=== PATIENT | female | born 1980 | race Caucasian/White ===

== ENCOUNTER 2018-04-20 21:06 | Emergency (ER) | payer OTHER ==
[2018-04-20 21:27] VITALS: BP 157/95; PULSE 86; TEMP 98.6; BMI 27.8
[2018-04-20] MEDS ORDERED: LIDOCAINE 5% TOPICAL PATCH TP ONE (21:27)
[2018-04-20] MEDS ORDERED: ACETAMINOPHEN 325 MG TABLET (FP) PO ONE (21:27)
[2018-04-20] MEDS ORDERED: LIDOCAINE 5% TOPICAL PATCH ONE (21:40)
[2018-04-20] MEDS ORDERED: ACETAMINOPHEN 325 MG TABLET (FP) ONE (21:40)
[2018-04-20] MEDS ORDERED: CYCLOBENZAPRINE HCL 5 MG TABLET PO ONE (21:46)
[2018-04-20] MEDS ORDERED: CYCLOBENZAPRINE HCL 10 MG TABLET (FP) ONE (21:52)
[2018-04-20] MEDS ORDERED: LIDOCAINE PATCH REMOVAL MC SCH (22:00)
--- NOTE | 2018-04-20 23:30 | PDOC ---
History of Present Illness - General Chief Complaint: Pain Stated Complaint: RT POST LOWER RIB PAIN Time Seen by Provider: 04/20/18 21:11 History Source: Patient Exam Limitations: No Limitations - History of Present Illness Initial Comments: 04/20/18 23:27\ VALENTINO 37 YOF with no pmh, presents to the emergency department complaining of 3 days of right sided back pain. Patient reports progressively worsening localized right thoracic back pain that began intermittently and is now constant , 12/12. Exacerbated with touching the area, leaning over, and coughing. Denies trauma or falls. However, does work and performs heavy lifting. +Intermittent coughing for several weeks, with URI back in March 2018. Took ibuprofen with no relief. Denies n/v/d, fever/chills, paresthesia or weakness, or change in urinary output. Denies EtOH, drug, or tobacco use. Social hx: works with babies/toddlers Past History - Past Medical History Allergies/Adverse Reactions: Allergies Allergy/AdvReac Type Severity Reaction Status Date / Time No Known Allergies Allergy Unverified 04/20/18 21:08 Home Medications: Ambulatory Orders Cyclobenzaprine HCl [Flexeril 10 mg] 10 mg PO TID PRN #15 tablet 04/20/18 Ibuprofen [Motrin -] 600 mg PO TID #21 tablet 04/20/18 Lidocaine 5% Patch [Lidoderm Patch -] 1 patch TP DAILY #7 patch 04/20/18 COPD: No - Suicide/Smoking/Psychosocial Hx Smoking History: Never smoked Review of Systems - Review of Systems Able to Perform ROS?: Yes Comments:: 04/20/18 23:31 Constitutional: no fevers or chills. HEENT: no headache or dizziness. No congestion. No visual/hearing disturbances. CVS: no cp or syncope. Resp:+Intermittent coughing. no sob, no cough. Abdomen: no abdominal pain, nausea or vomiting. Genitourinary: no urinary sx, hematuria. MUSCULOSKELETAL: +Back pain. No joint pain and swelling. No neck pain. SKIN: no redness or skin changes, no discharge, no rash. No wounds. Hematologic: no easy bruising/bleeding. NEUROLOGIC: No headache, dizziness, LOC or altered mental status. No weakness, numbness or tingling. All other systems reviewed and negative, or as documented in HPI. *Physical Exam - Vital Signs Last Vital Signs Temp Pulse Resp BP Pulse Ox 98.6 F 86 16 157/95 100 04/20/18 21:18 04/20/18 21:18 04/20/18 21:18 04/20/18 21:18 04/20/18 21:18 - Physical Exam Comments: 04/20/18 23:32 General: Well appearing, awake and alert, NAD. HEENT: NCAT, PERRL, EOMI, clear conjunctiva, anicteric, moist mucus membranes, clear oropharynx, no oral lesions.. Neck: neck supple, FROM Resp: CTAB, normal and even respirations, no respiratory distress CVS: RRR, no murmurs, 2+ peripheral pulses throughout, no peripheral edema Abdomen: soft, NTND, no peritoneal signs. Back: +right mid thoracic palp TTP, no crepitus. normal inspection and ROM MSK: no edema, CRISTINA x4, ROM intact. No clubbing or cyanosis. normal bulk and tone. Extrem: no calf tenderness Neuro: alert, oriented appropriately; no focal neurologic deficits Skin: warm and well perfused, cap refill <2 sec, normal color ED Treatment Course - ADDITIONAL ORDERS Additional order review: Laboratory Results 04/20/18 22:20 Urine HCG, Qual Negative - RADIOLOGY Radiology Studies Ordered: Category Date Time Status CHEST PA & LAT [RAD] Stat Radiology 04/20/18 22:02 Taken - Medications Given in the ED: ED Medications Discontinued Medications Generic Name Dose Route Start Last Admin Trade Name Freq PRN Reason Stop Dose Admin Acetaminophen 650 mg 04/20/18 21:27 04/20/18 21:43 Tylenol - PO 04/20/18 21:28 650 mg ONCE ONE Administration Cyclobenzaprine HCl 10 mg 04/20/18 21:46 04/20/18 21:54 Cyclobenzaprine Hcl PO 04/20/18 21:47 10 mg ONCE ONE Administration Lidocaine 1 patch 04/20/18 21:27 04/20/18 21:43 Lidoderm Patch - TP 04/20/18 21:28 1 patch ONCE ONE Administration Medical Decision Making - Medical Decision Making 04/20/18 23:32 Valentino 37 YOF with right upper paravertebral back pain, worse with movement. + exertional activity, no trauma or falls VS wnl no midline sx. no neuro changes. given analgesia, flexeril muscle relaxant, topical lidoderm ROM intact. analgesia achieved most likely msk strain. CXR clear, normal respirations, no e/o pneumonia, ptx. avoid heavy lifting and exertion supportive care, rx same meds to pharmacy. pcp followup. DC in stable condition 04/20/18 23:34 *DC/Admit/Observation/Transfer Diagnosis at time of Disposition: Upper back strain - Discharge Dispostion Disposition: HOME Condition at time of disposition: Stable Decision to Admit order: No - Prescriptions Prescriptions: Cyclobenzaprine HCl [Flexeril 10 mg] 10 mg PO TID PRN #15 tablet PRN Reason: Muscle Spasms Ibuprofen [Motrin -] 600 mg PO TID #21 tablet Lidocaine 5% Patch [Lidoderm Patch -] 1 patch TP DAILY #7 patch - Referrals Referrals: Maxx Metcalf [Primary Care Provider] - - Patient Instructions Printed Discharge Instructions: DI for Thoracic Back Pain Additional Instructions: your X ray was negative for infection stay well hydrated may use flexeril (muscle relaxant), three times a day as needed for spasms. this can cause sleepiness and dizziness, do not work or drive or operate machinery under this medication motrin every 8 hours as needed for pain, tylenol as well lidoderm patch topically avoid heavy lifting and strenuous activity, light activity as tolerated. follow up with primary doctor - Post Discharge Activity
== END 2018-04-20 23:42 | disposition home or self-care (01) ==
LOC: FER 21:06
DX: S29.012A Strain of muscle and tendon of back wall of thorax, initial encounter (principal); X58.XXXA Exposure to other specified factors, initial encounter; Y93.9 Activity, unspecified; Y92.9 Unspecified place or not applicable
CPT/HCPCS: 71046-TC-FY; 84703; 99282-25

== ENCOUNTER 2024-07-25 10:10 | Inpatient (IN) | payer OTHER ==
[2024-07-25] MEDS ORDERED: FAMOTIDINE 20 MG/50 ML IVPB 20 MG/50 ML MG IVPB ONE (10:51)
[2024-07-25] MEDS ORDERED: MECLIZINE HCL 25 MG TABLET (FP) ONE (10:51)
[2024-07-25] MEDS ORDERED: ONDANSETRON 4 MG/2 ML VIAL ONE (10:51)
[2024-07-25] MEDS: ONDANSETRON 4 MG/2 ML VIAL IVPUSH ONE (10:55)
[2024-07-25] MEDS: MECLIZINE HCL 25 MG TABLET (FP) PO ONE (11:00)
[2024-07-25] MEDS: FAMOTIDINE 20 MG/50 ML IVPB 20 MG/50 ML MG IVPB ONE (11:02)
[2024-07-25 11:10] LABS: INR 1.07 (0.83-1.09); PROTHROMBIN TIME (PATIENT) 12.2 SEC (9.7-13.0)
[2024-07-25 11:12] LABS: ACTIVATED PTT 35.6 SECONDS (25.2-36.5)
[2024-07-25 11:14] LABS: HEMATOCRIT 51.4 % (32.4-45.2); HEMOGLOBIN 17.5 G/dL (10.7-15.3); MCH 34.6 pg (25.7-33.7); MEAN CELL VOLUME 101.8 fl (80-96); MEAN PLT VOLUME 10.2 fl (7.5-11.1); PLATELET COUNT 256.4 10^3/uL (134-434); RBC 5.05 10^6/uL (3.60-5.2); RDW 12.8 % (11.6-15.6); WHITE BLOOD COUNT 12.5 10^3/uL (4.0-10.8)
[2024-07-25] MEDS ORDERED: ACETAMINOPHEN 325 MG TABLET (FP) ONE (11:17)
[2024-07-25] MEDS: ACETAMINOPHEN 325 MG TABLET (FP) PO ONE (11:19)
[2024-07-25 11:21] LABS: ALBUMIN 5.1 g/dl (3.4-5.0); ALK PHOS 150 U/L (45-117); ANION GAP 27 mmol/L (4-13); BILIRUBIN,TOTAL 0.5 mg/dl (0.2-1); CALCIUM 10.3 mg/dl (8.5-10.1); CHLORIDE 101 mmol/L (98-107); CO2 5 mmol/L (21-32); CREATININE 1.3 mg/dl (0.6-1.3); POTASSIUM 5.1 mmol/L (3.5-5.1); SGOT/AST 13 U/L (15-37); SGPT/ALT 24 U/L (7-52); SODIUM 133 mmol/L (136-145); TOT PROT 8.6 g/dl (6.4-8.2)
[2024-07-25 11:26] LABS: GLUCOSE,RANDOM 577 mg/dl (74-106)
[2024-07-25 11:55] LABS: EPITHELIAL CELLS 0-5 /hpf
[2024-07-25 11:55] LABS: N-TERMINAL BNP 92.1 pg/ml (5-125)
[2024-07-25 11:56] LABS: PLATELET ESTIMATE ADEQUATE
[2024-07-25] MEDS ORDERED: MUPIROCIN 2% TOPICAL OINTMENT FOR DECOLONIZATION NS SCH (12:00)
[2024-07-25] MEDS: INSULIN REGULAR 100 UNITS in SODIUM CHLORIDE 99 ML IVPB SCH ×2 (12:08→21:25)
[2024-07-25] MEDS: SODIUM CHLORIDE 1,000 ML IV STA ×2 (12:35→14:19)
[2024-07-25 12:41] LABS: HIV INTERPRETATION NEGATIVE (NEGATIVE)
[2024-07-25 13:18] LABS: VENOUS BASE EXCESS -24.9 mmol/L (-2-2); VENOUS O2 SATURATION 70.6 % (70-80); VENOUS PCO2 22.2 mmHg (38-52)
[2024-07-25 13:22] LABS: VENOUS PH 6.989 (7.310-7.410)
[2024-07-25] MEDS: LACTATED RINGERS SOLUTION 1,000 ML/1,000 ML INFUS.BAG IV SCH ×2 (15:55→21:24)
[2024-07-25] MEDS: MUPIROCIN 2% TOPICAL OINTMENT FOR DECOLONIZATION NS SCH (15:55)
[2024-07-25 18:35] LABS: POTASSIUM 4.6 mmol/L (3.5-5.1)
[2024-07-25 18:37] LABS: CALCIUM 8.4 mg/dL (8.5-10.1)
[2024-07-25 18:38] LABS: BLOOD UREA NITROGEN 19.1 mg/dL (7-18)
[2024-07-25 18:41] LABS: CREATININE 0.9 mg/dL (0.55-1.3); PHOSPHOROUS 2.1 mg/dL (2.5-4.9)
[2024-07-25] MEDS: POTASSIUM PHOSPHATE 15 MM in SODIUM CHLORIDE 250 ML IVPB ONE (21:24)
[2024-07-25] MEDS: DEXTROSE 5%-WATER - 1,000 ML IV SCH (21:25)
[2024-07-25] MEDS: CHLORHEXIDINE GLUCONATE 4% CLEANSER FOR DECOLONIZATION TP SCH (21:27)
[2024-07-25] MEDS ORDERED: CHLORHEXIDINE GLUCONATE 4% CLEANSER FOR DECOLONIZATION TP SCH (22:00)
[2024-07-26 06:11] LABS: ARTERIAL BLD GAS O2 SATURATION 97.6 % (95-98); ARTERIAL BLOOD GAS BASE EXCESS -10.9 mmol/L (-2-2); ARTERIAL BLOOD GAS PO2 100.6 mmHg (80-100); ARTERIAL BLOOD GAS pH 7.369 (7.350-7.450)
[2024-07-26 06:18] LABS: ALLENS TEST POSITIVE
[2024-07-26] MEDS: INSULIN (LEVEMIR) 100 UNITS/ML UNITS SQ ONE (06:52)
[2024-07-26 06:54] LABS: BASO % 0.6 % (0-2.0); EOS % 0.2 % (0-4.5); HEMATOCRIT 41.5 % (32.4-45.2); HEMOGLOBIN 13.9 GM/dL (10.7-15.3); LYMPH % 12.9 % (8-40); MCH 33.3 pg (25.7-33.7); MCHC 33.4 g/dl (32.0-36.0); MEAN CELL VOLUME 99.6 fl (80-96); MEAN PLT VOLUME 9.1 fl (7.5-11.1); MONO % 6.9 % (3.8-10.2); NEUT % 79.4 % (42.8-82.8); PLATELET COUNT 193 10^3/uL (134-434); RBC 4.17 M/mm3 (3.60-5.2); RDW 13.7 % (11.6-15.6); WHITE BLOOD COUNT 13.5 K/mm3 (4.0-10.0)
[2024-07-26] MEDS: INSULIN ASPART SLIDING SCALE (NOVOLOG) 1 VIAL SQ SCH ×2 (06:55→21:53)
[2024-07-26 07:16] LABS: POTASSIUM 3.3 mmol/L (3.5-5.1)
[2024-07-26 07:20] LABS: BLOOD UREA NITROGEN 13.5 mg/dL (7-18)
[2024-07-26 07:21] LABS: CALCIUM 8.8 mg/dL (8.5-10.1)
[2024-07-26 07:22] LABS: MAGNESIUM 1.9 mg/dL (1.8-2.4)
[2024-07-26 07:23] LABS: CREATININE 0.8 mg/dL (0.55-1.3)
[2024-07-26 07:24] LABS: PHOSPHOROUS 1.4 mg/dL (2.5-4.9)
[2024-07-26] MEDS: ENOXAPARIN NA (PORCINE) 40 MG/0.4 ML DISP.SYRIN SQ SCH (09:16)
[2024-07-26] MEDS: POTASSIUM PHOSPHATE 15 MM in DEXTROSE 5%-WATER - 100 ML IVPB ONE (09:16)
[2024-07-26] MEDS: POTASSIUM CHLORIDE ORAL LIQUID 20 MEQ/15 ML PO ONE (09:16)
[2024-07-26] MEDS: NYSTATIN 500,000 UNITS/5 ML SUSPENSION PO SCH ×2 (09:28→21:54)
[2024-07-26] MEDS: NORETHINDRONE 0.35 MG PO SCH (12:54)
[2024-07-26] MEDS ORDERED: MUPIROCIN 2% TOPICAL OINTMENT FOR DECOLONIZATION NS SCH (22:00)
[2024-07-26] MEDS ORDERED: CHLORHEXIDINE GLUCONATE 4% CLEANSER FOR DECOLONIZATION TP SCH (22:00)
[2024-07-27] MEDS: ACETAMINOPHEN 1000 MG/100 ML BAG IVPB ONE ×2 (03:35→06:35)
[2024-07-27] MEDS ORDERED: INSULIN (LEVEMIR) 100 UNITS/ML UNITS SQ SCH (06:00)
[2024-07-27] MEDS: INSULIN ASPART SLIDING SCALE (NOVOLOG) 1 VIAL SQ SCH ×2 (06:37→22:28)
[2024-07-27] MEDS: INSULIN (LEVEMIR) 100 UNITS/ML UNITS SQ SCH ×2 (06:38→22:21)
[2024-07-27] MEDS: ENOXAPARIN NA (PORCINE) 40 MG/0.4 ML DISP.SYRIN SQ SCH (09:39)
[2024-07-27 09:41] LABS: HEMATOCRIT 43.3 % (32.4-45.2); HEMOGLOBIN 14.7 GM/dL (10.7-15.3); MCH 33.5 pg (25.7-33.7); MEAN CELL VOLUME 98.4 fl (80-96); RDW 13.9 % (11.6-15.6)
[2024-07-27] MEDS: LISINOPRIL 10 MG TABLET PO ONE (09:41)
[2024-07-27 09:54] LABS: POTASSIUM 3.3 mmol/L (3.5-5.1)
[2024-07-27 09:59] LABS: CALCIUM 9.1 mg/dL (8.5-10.1)
[2024-07-27 10:00] LABS: BLOOD UREA NITROGEN 12.3 mg/dL (7-18); MAGNESIUM 2.4 mg/dL (1.8-2.4)
[2024-07-27 10:03] LABS: CREATININE 0.6 mg/dL (0.55-1.3); PHOSPHOROUS 1.7 mg/dL (2.5-4.9)
[2024-07-27 10:06] LABS: ALBUMIN 3.2 g/dl (3.4-5.0); BILIRUBIN,TOTAL 0.8 mg/dL (0.2-1); TOT PROT 6.9 g/dl (6.4-8.2)
[2024-07-27] MEDS: NORETHINDRONE 0.35 MG PO SCH (13:30)
[2024-07-27] MEDS: POTASSIUM CHLORIDE TABS 20 MEQ TABLET.ER (FP) PO ONE (13:44)
[2024-07-27] MEDS: NAPH,MB-DB/K PH,MBDB POWDER PACKET PO SCH (13:44)
[2024-07-27] MEDS: ATORVASTATIN CA 80 MG TABLET (FP) PO SCH (22:19)
[2024-07-27 23:57] VITALS: BMI 28.9
[2024-07-28] MEDS: ACETAMINOPHEN 1000 MG/100 ML BAG IVPB ONE (02:28)
[2024-07-28] MEDS: INSULIN (LEVEMIR) 100 UNITS/ML UNITS SQ SCH (06:57)
[2024-07-28] MEDS: LISINOPRIL 10 MG TABLET PO SCH (10:08)
[2024-07-28 18:24] LABS: BASO % 0.4 % (0-2.0); EOS % 0.5 % (0-4.5); HEMATOCRIT 43.4 % (32.4-45.2); MCH 33.5 pg (25.7-33.7); MCHC 34.5 g/dl (32.0-36.0); MEAN CELL VOLUME 97.2 fl (80-96); MEAN PLT VOLUME 9.2 fl (7.5-11.1); MONO % 7.2 % (3.8-10.2); NEUT % 56.9 % (42.8-82.8); PLATELET COUNT 216 10^3/uL (134-434); RBC 4.47 M/mm3 (3.60-5.2); RDW 14.1 % (11.6-15.6); WHITE BLOOD COUNT 11.4 K/mm3 (4.0-10.0)
[2024-07-28 18:39] LABS: POTASSIUM 3.3 mmol/L (3.5-5.1)
[2024-07-28 18:41] LABS: ALBUMIN 3.3 g/dl (3.4-5.0); CALCIUM 9.3 mg/dL (8.5-10.1)
[2024-07-28 18:42] LABS: BLOOD UREA NITROGEN 12.7 mg/dL (7-18); MAGNESIUM 2.1 mg/dL (1.8-2.4)
[2024-07-28 18:45] LABS: CREATININE 0.6 mg/dL (0.55-1.3)
[2024-07-28 18:46] LABS: BILIRUBIN,TOTAL 0.5 mg/dL (0.2-1); TOT PROT 6.8 g/dl (6.4-8.2)
[2024-07-29] MEDS: ACETAMINOPHEN 1000 MG/100 ML BAG IVPB ONE (02:30)
[2024-07-29 07:43] LABS: BASO % 0.7 % (0-2.0); EOS % 1.8 % (0-4.5); HEMATOCRIT 38.9 % (32.4-45.2); HEMOGLOBIN 13.6 GM/dL (10.7-15.3); MCH 34.3 pg (25.7-33.7); MCHC 35.1 g/dl (32.0-36.0); MEAN CELL VOLUME 97.9 fl (80-96); MEAN PLT VOLUME 10.2 fl (7.5-11.1); MONO % 8.5 % (3.8-10.2); PLATELET COUNT 139 10^3/uL (134-434); RBC 3.97 M/mm3 (3.60-5.2); RDW 13.9 % (11.6-15.6); WHITE BLOOD COUNT 7.2 K/mm3 (4.0-10.0)
[2024-07-29 07:59] LABS: POTASSIUM 3.6 mmol/L (3.5-5.1)
[2024-07-29 08:01] LABS: CALCIUM 8.9 mg/dL (8.5-10.1)
[2024-07-29 08:02] LABS: ALBUMIN 2.8 g/dl (3.4-5.0); BLOOD UREA NITROGEN 13.5 mg/dL (7-18)
[2024-07-29 08:05] LABS: CREATININE 0.5 mg/dL (0.55-1.3)
[2024-07-29 08:06] LABS: BILIRUBIN,TOTAL 0.8 mg/dL (0.2-1)
[2024-07-29 08:07] LABS: TOT PROT 5.7 g/dl (6.4-8.2)
[2024-07-29 11:46] VITALS: BP 133/78; PULSE 91; RESP 18; TEMP 98.6
== END 2024-07-29 14:18 | disposition home or self-care (01) | DRG 638 ==
LOC: FER 10:10 → JICU 13:45 → J7W 07-26 18:11
PROVIDERS: ADMIT Internal Medicine
DX: E11.10 Type 2 diabetes mellitus with ketoacidosis without coma (principal); E87.1 Hypo-osmolality and hyponatremia; N17.9 Acute kidney failure, unspecified; R42 Dizziness and giddiness; I10 Essential (primary) hypertension; R00.0 Tachycardia, unspecified; E78.5 Hyperlipidemia, unspecified; R80.9 Proteinuria, unspecified; E66.3 Overweight; Z68.28 Body mass index [BMI] 28.0-28.9, adult; E87.6 Hypokalemia; E83.39 Other disorders of phosphorus metabolism; M54.6 Pain in thoracic spine
CPT/HCPCS: 0241U-QW; 36415; 36600; 71046-TC-FY; 80048; 80053; 80061; 81003; 81015; 82010; 82803; 82962; 83036; 83735; 83880; 84100; 84443; 84484; 84703; 85025; 85027; 85610; 85730; 86803; 87086; 87389; 93005; 93010; 93306-TC; 99291; J0131